=== PATIENT | female | born 1950 | race Caucasian/White ===

== ENCOUNTER 2017-10-03 09:47 | Observation (INO) ==
[2017-10-03] MEDS ORDERED: Ipratropium/Albuterol Neb 3 ML IH ONE (09:55)
--- NOTE | 2017-10-03 09:57 | Emergency Department Note ---
Disposition Clinical Impression: Influenza, Hypoxia, Weakness generalized Disposition: Admitted As Inpatient Condition: Fair Referrals: Jazmin Blair CNP [Primary Care Provider] - Forms: ED Satisfaction Letter SOB HPI - General Chief Complaint: ED Shortness of Breath/Dyspnea Stated Complaint: fever,chills, sob Time Seen by Provider: 10/03/17 09:50 Source: patient Mode of arrival: private vehicle Limitations: no limitations Nursing Notes Reviewed: Yes Vital Signs Reviewed: Yes - History of Present Illness Patient presents stating that she has "awful sick". She states symptoms started sometime last week and she cannot identify exactly how long. She states she did go to her family doctor on Saturday and received a intramuscular injection of an antibiotic and was discharged on an antibiotic. She is told she had an ear infection had a negative flu swab. She denies any other tests. She is continued with a cough which is nonproductive. She reports fevers, chills and generalized weakness and malaise. Denies chest pain and states it is "just short of breath". She has had some nausea without vomiting and has had some diarrhea for about 2 weeks. She is unable to describe her diarrhea at this time because she is "too sick". She has had a bit of a sore throat. She has been exposed to a daughter who has had recent upper respiratory infection. She states she has had surgery on her left leg but denies any new lower extremity swelling or pain or injury. She has not been having trouble with her urine. She denies headache, visual changes or any localized weakness. She has generalized weakness and malaise. Pt Subjective Complaint: shortness of breath, cough Onset (ago): week(s) (1) Context: recent illness Severity: moderate Consistency/Duration: gradually worsening Improves with: rest Worsens with: exertion, coughing Known history of: asthma Associated symptoms: Reports: fever, cough, wheezing, nausea/vomiting. Denies: chest pain, pain with inspiration, sputum production, orthopnea, lower extremity pain, polyuria, polydipsia, parasthesias, palpitations, hemoptysis, diaphoresis, syncope, abdominal pain, rash Cough present: Yes Cough Description: Voluntary, Dry, Hacking Cough Frequency: Intermittent Sputum production: No - Related Data Home oxygen amount: none Home Medications Medication Instructions Recorded Confirmed ALPRAZolam [Xanax 0.5 MG Tablet] 0.5 mg PO QID 06/13/17 10/03/17 Albuterol Sulfate [Albuterol 2 puff IH Q4H PRN 06/13/17 10/03/17 Inhaler] Aspirin [Lo-Dose Aspirin EC] 81 mg PO DAILY 06/13/17 10/03/17 Cetirizine HCl [Zyrtec] 10 mg PO DAILY 06/13/17 10/03/17 Cholecalciferol (D-3) [Vitamin D] 5,000 unit PO DAILY 06/13/17 10/03/17 Citalopram Hydrobromide [Celexa] 30 mg PO DAILY 06/13/17 10/03/17 Cyclobenzaprine [Flexeril] 5 mg PO HS 06/13/17 10/03/17 Fluticasone Propionate Nasal 1 spray NS BID 06/13/17 10/03/17 [Flonase] Lisinopril [Zestril] 10 mg PO DAILY 06/13/17 10/03/17 Montelukast Sodium [Singulair] 10 mg PO HS 06/13/17 10/03/17 OxyCODONE/APAP 10/325 [Percocet 1 each PO Q4H PRN 06/13/17 10/03/17 10/325 MG] lamoTRIgine [Lamictal] 200 mg PO HS 06/13/17 10/03/17 risperiDONE [RisperDAL] 4 mg PO DAILY 06/13/17 10/03/17 Amoxicillin 875 mg PO BID 10/03/17 10/03/17 Allergies Allergy/AdvReac Type Severity Reaction Status Date / Time prochlorperazine Allergy Rash Verified 10/03/17 09:49 All systems ED: reviewed and negative except as stated. Past Medical History - Past Medical History Attestation: Yes The following information was validated with the patient. Source: patient, old records reviewed, obtained from family, nursing notes reviewed Medical history: Reports: asthma, hypertension, osteoporosis, other Surgical history: Reports: appendectomy, cataract, cholecystectomy, hysterectomy , knee replacement (left), other Psychiatric history: Reports: anxiety, bipolar, depression - Social History Smoking Status: Never smoker Smokeless Tobacco Status: No Alcohol use: Reports: none Drug use: Reports: none Physical Exam - General Limitations: no limitations General appearance: alert, anxious - Head Head exam: atraumatic, normocephalic, normal inspection - Eye Eye exam: Present: normal appearance, PERRL, EOMI - ENT ENT exam: normal exam, normal oropharynx, mucous membranes moist, other (Left TM is erythematous. Right TM is normal.) - Neck Neck exam: Present: normal inspection, full ROM, trachea midline - Chest Chest inspection: Present: normal inspection, symmetric chest wall rise - Respiratory Respiratory exam: Present: normal lung sounds bilaterally, respiratory distress (Tachypneic), wheezes. Absent: accessory muscle use, prolonged expiratory phase - Cardiovascular Cardiovascular exam: Present: regular rate, normal rhythm, normal heart sounds - Abdominal Exam Abdominal exam: Present: soft, Non-Tender, normal bowel sounds. Absent: tenderness, distention, guarding, rebound, rigidity - Extremities Exam Extremities exam: Present: normal inspection, full ROM. Absent: tenderness, pedal edema - Expanded Lower Extremity Exam Neurovascular/Tendon exam: Present: normal capillary refill. Absent: motor deficit, sensory deficit, tendon deficit Gait: observed and normal (With a walker) - Back Exam Back exam: Present: normal inspection, full ROM. Absent: tenderness - Neurological Exam Neurological exam: Present: alert, oriented X3 - Psychiatric Psychiatric exam: Present: agitated, anxious - Skin Skin exam: Present: warm, dry, intact, normal color. Absent: rash, diaphoresis , pallor Course Course Narrative: Care has been discussed with the patient and Dr. Moya. Given her room air hypoxia 88%, dyspnea and malaise, she will need observation. She has been coordinated for observation with verbal orders obtained. Her condition is improved. Vital Signs Temperature 97.5 F L 10/03/17 09:50 Pulse Rate 81 10/03/17 09:50 Respiratory Rate 18 10/03/17 09:50 Blood Pressure 119/77 10/03/17 09:50 O2 Sat by Pulse Oximetry 88 10/03/17 09:50 Temperature 97.5 F L 10/03/17 09:50 Pulse Rate 75 10/03/17 11:00 Respiratory Rate 18 10/03/17 11:00 Blood Pressure 110/49 10/03/17 11:00 O2 Sat by Pulse Oximetry 95 10/03/17 11:00 Oxygen Delivery Oxygen Delivery Nasal Cannula Shortness of Breath/Dyspnea - Differential Diagnosis Likely: acute exacerbation of chronic obstructive airways disease, pneumonia, asthma with exacerbation - Medical Records Medical records reviewed: Yes I reviewed the patient's medical records. - Lab Data Lab results reviewed: Yes I reviewed the patient's lab results. Lab results narrative: Influenza A is positive and influenza B is negative. Result diagrams: 10/03/17 10:12 10/03/17 10:12 Lab Results 10/03/17 10/03/17 10/03/17 Range/Units 10:12 10:12 10:12 WBC 7.5 (4.3-11.1) K/mcL RBC 3.97 (3.82-4.97) M/mcL Hgb 11.6 (11.5-15.4) g/dL Hct 36.6 (35.3-44.9) % MCV 92.2 (83.0-100.0) fL MCH 29.2 (28.0-33.3) pg MCHC 31.7 (31.6-35.5) g/dL RDW 13.0 (11.5-14.5) % Plt Count 185 (140-400) K/mcL MPV 9.5 (9.4-12.4) fL Immature Gran % 0.3 (0-4) % Seg Neutrophils % 61.3 % Lymphocytes % 25.2 % Monocytes % 12.2 % Eosinophils % 0.9 % Basophils % 0.1 % Neutrophils # 4.6 (1.6-8.9) K/mcL Lymphocytes # 1.9 (0.6-4.6) K/mcL Monocytes # 0.9 (0.0-1.3) K/mcL Eosinophils # 0.1 (0.0-0.6) K/mcL Basophils # 0.0 (0.0-0.2) K/mcL Sodium 135 L (136-145) mEq/L Potassium 4.2 (3.5-5.1) mEq/L Chloride 97 L (98-107) mEq/L Carbon Dioxide 33 H (23-29) mEq/L BUN 9 (8-23) mg/dL Creatinine 0.74 (0.60-1.20) mg/dL Est GFR ( Amer) > 60 (> 60) Est GFR (Non-Af Amer) > 60 (> 60) BUN/Creatinine Ratio 12 (6-26) Glucose 103 (70-105) mg/dL Calculated Osmolality 279 L (280-300) Lactic Acid 1.0 (0.5-2.2) mmol/L Calcium 8.8 (8.6-10.3) mg/dL Troponin I (< 0.04) ng/mL B-Natriuretic Peptide (Less than 100) pg/mL 10/03/17 10/03/17 Range/Units 10:12 10:12 WBC (4.3-11.1) K/mcL RBC (3.82-4.97) M/mcL Hgb (11.5-15.4) g/dL Hct (35.3-44.9) % MCV (83.0-100.0) fL MCH (28.0-33.3) pg MCHC (31.6-35.5) g/dL RDW (11.5-14.5) % Plt Count (140-400) K/mcL MPV (9.4-12.4) fL Immature Gran % (0-4) % Seg Neutrophils % % Lymphocytes % % Monocytes % % Eosinophils % % Basophils % % Neutrophils # (1.6-8.9) K/mcL Lymphocytes # (0.6-4.6) K/mcL Monocytes # (0.0-1.3) K/mcL Eosinophils # (0.0-0.6) K/mcL Basophils # (0.0-0.2) K/mcL Sodium (136-145) mEq/L Potassium (3.5-5.1) mEq/L Chloride (98-107) mEq/L Carbon Dioxide (23-29) mEq/L BUN (8-23) mg/dL Creatinine (0.60-1.20) mg/dL Est GFR ( Amer) (> 60) Est GFR (Non-Af Amer) (> 60) BUN/Creatinine Ratio (6-26) Glucose (70-105) mg/dL Calculated Osmolality (280-300) Lactic Acid (0.5-2.2) mmol/L Calcium (8.6-10.3) mg/dL Troponin I < 0.03 (< 0.04) ng/mL B-Natriuretic Peptide 5 (Less than 100) pg/mL - Radiology Data Radiology results reviewed: Yes I reviewed the patient's radiology results. Single view chest x-ray is performed. This does not demonstrate evidence for infiltrate, effusion, pneumothorax, foreign body or heart failure. The cardiac silhouette is normal. I do not see abnormality to the osseous structures of the chest. This is on my interpretation. Impressions Chest X-Ray 10/03/17 09:55 IMPRESSION: Mild cardiomegaly. Otherwise, no acute abnormalities seen in the chest D/ / Ang Anders MD / Ang Anders MD Interpreting Provider: Ang Anedrs MD - EKG Data EKG attestation: Yes I reviewed and interpreted this EKG. EKG shows normal: Reports: sinus rhythm, axis, intervals, ST-T waves Rate: Reports: normal (75) [place]/QRS: Reports: RBBB Interpretation: Reports: no acute changes
[2017-10-03 10:28] LABS: Basophils % 0.1 %; Eosinophils # 0.1 K/mcL (0.0-0.6); Eosinophils % 0.9 %; Hematocrit 36.6 % (35.3-44.9); Hemoglobin 11.6 g/dL (11.5-15.4); Immature Granulocytes % 0.3 % (0-4); Lymphocytes # 1.9 K/mcL (0.6-4.6); Lymphocytes % 25.2 %; Mean Corpuscular HGB Conc 31.7 g/dL (31.6-35.5); Mean Corpuscular Hemoglobin 29.2 pg (28.0-33.3); Mean Corpuscular Volume 92.2 fL (83.0-100.0); Mean Platelet Volume 9.5 fL (9.4-12.4); Monocytes # 0.9 K/mcL (0.0-1.3); Monocytes % 12.2 %; Neutrophils # 4.6 K/mcL (1.6-8.9); Platelet Count 185 K/mcL (140-400); Red Blood Count 3.97 M/mcL (3.82-4.97); Segmented Neutrophils % 61.3 %
[2017-10-03 10:39] LABS: BUN/Creatinine Ratio 12 (6-26); Blood Urea Nitrogen 9 mg/dL (8-23); Calcium 8.8 mg/dL (8.6-10.3); Carbon Dioxide 33 mEq/L (23-29); Chloride 97 mEq/L (98-107); Glucose 103 mg/dL (70-105); Osmolality,Calculated 279 (280-300); Potassium 4.2 mEq/L (3.5-5.1); Sodium 135 mEq/L (136-145); eGFR For African Americans > 60 (> 60); eGFR For Non-African Americans > 60 (> 60)
[2017-10-03] MEDS ORDERED: 0.9 % Sodium Chloride 1,000 ML IVC SCH (11:15)
[2017-10-03] MEDS ORDERED: Naloxone 0.4 MG/ML INJ IVP PRN (12:01)
[2017-10-03] MEDS ORDERED: MOM Conc 10 ML UD.LIQ PO PRN (12:01)
[2017-10-03] MEDS ORDERED: Ondansetron 4 MG/2 ML VIAL IVP PRN (12:01)
[2017-10-03] MEDS: 0.9 % Sodium Chloride 1,000 ML IVC SCH ×2 (12:43→20:14)
[2017-10-03] MEDS: ALPRAZolam 0.5 MG TABLET PO SCH ×3 (12:43→20:12)
[2017-10-03] MEDS: *HR* OxyCODONE/APAP 10/325 TABLET PO PRN ×2 (13:23→20:12)
--- NOTE | 2017-10-03 15:08 | Internal Med History&Physical ---
Date of Encounter: 10/03/17 Time of Encounter: 14:35 Assessment and Plan (1) Influenza Current visit: Yes Status: Acute She has been started on Tamiflu. Room air oximetry will be checked in a.m. Internal Medicine - H&P: HPI Chief complaint: Dyspnea and diarrhea Admitted From: Emergency Dept Plans for Post Hospital Care: Home History of present illness: Ms. Brenner is a 67 year old female who came to emergency room stating she had dyspnea with diarrhea onset approximately 2 weeks ago. She had seen her PCP on September 27 and received a prescription for Augmentin. She had taken the medication as prescribed but did not feel improved. She reports diarrhea is present intermittently for approximately 2 weeks without visible blood. She was evaluated in emergency room found to have influenza A and borderline hypoxemia. She was admitted to [facility] floor for ongoing care needs She reports several family members have had similar respiratory illnesses. Denies abdominal pain but states she does have some soreness in her chest on deep inspiration. Her respiratory history is significant for having smoked from age [age] up to 3 packs per day. She has a diagnosis of asthma. She does not wear home oxygen and has not been tested for sleep apnea. Past Med Surg Social Fam HX - Past Medical History Medical history: asthma, hypertension, osteoporosis, other Psychiatric history: anxiety, bipolar, depression - Past Surgical History Surgical History: appendectomy, cataract, cholecystectomy, hysterectomy, knee replacement, other - Social History Smoking Status: Never smoker Smokeless Tobacco Status: No Alcohol use: none Drug use: none - Family History Father Adopted: No Family Member Ethnicity: Non- Living Status: Hx Family Cardiac Disorders: No Hx Family Respiratory Disorders: No Hx Family Cancer: No Hx Family GI Disorders: No Hx Family Endocrine Disorder: No Hx Family Neuromuscular Disorders: No Hx Family Neurologic Disorders: No Hx Family HEENT Disorders: No Hx Family Autoimmune Disorders: No Internal Medicine - H&P: Meds ALPRAZolam [Xanax 0.5 MG Tablet] 0.5 mg PO QID 06/13/17 [History] Albuterol Sulfate [Albuterol Inhaler] 2 puff IH Q4H PRN 06/13/17 [History] Aspirin [Lo-Dose Aspirin EC] 81 mg PO DAILY 06/13/17 [History] Cetirizine HCl [Zyrtec] 10 mg PO DAILY 06/13/17 [History] Cholecalciferol (D-3) [Vitamin D] 5,000 unit PO DAILY 06/13/17 [History] Citalopram Hydrobromide [Celexa] 30 mg PO DAILY 06/13/17 [History] Cyclobenzaprine [Flexeril] 5 mg PO HS 06/13/17 [History] Fluticasone Propionate Nasal [Flonase] 1 spray NS BID 06/13/17 [History] Lisinopril [Zestril] 10 mg PO DAILY 06/13/17 [History] Montelukast Sodium [Singulair] 10 mg PO HS 06/13/17 [History] OxyCODONE/APAP 10/325 [Percocet 10/325 MG] 1 each PO Q4H PRN 06/13/17 [History] lamoTRIgine [Lamictal] 200 mg PO HS 06/13/17 [History] risperiDONE [RisperDAL] 4 mg PO DAILY 06/13/17 [History] Amoxicillin 875 mg PO BID 10/03/17 [History] 3 Allergy/AdvReac Type Severity Reaction Status Date / Time prochlorperazine Allergy Rash Verified 10/03/17 09:49 All Systems PM: A 10-system review of systems was performed and is negative for pertinent findings except as documented above in the HPI. Review of systems: Gen.: Her weight has increased from 81.647 kg at a July 2014 [facility] hospitalization to 108.862 kg on admission now Cardiovascular: She has history of hypertension but denies NV heart failure angina DVT or pulmonary embolus Respiratory: As per history of present illness GI: She has had cholecystectomy. She has occasional GERD. She denies disorders of her liver or exocrine pancreas : No history of hematuria or dysuria or kidney stones Neurologic: She has occasional migraine headaches but denies large distribution strokes or seizures. Endocrine: She denies diabetes thyroid disease or hyperlipidemia Hematology/oncology: She has had anemia in the past. 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 She denies other internal malignancies. Psychiatric: She has anxiety, bipolar disorder and schizoaffective disorder. She follows at mental health clinic. Muscle skeletal: She has had 3 left knee replacements and a left leg fracture. She denies gout or osteoporosis. - Constitutional Vitals: Temp Pulse Resp BP Pulse Ox 97.8 F 71 20 98/61 96 10/03/17 12:05 10/03/17 12:05 10/03/17 12:05 10/03/17 12:05 10/03/17 12:05 Exam: Gen.: She is a well-developed overweight female lying in bed who appears in minimal respiratory distress at present time HEENT: Head is atraumatic and normocephalic. Eyes: EOMI. There is no scleral icterus. Mouth: Mucosa is moist. Neck: Supple and nontender. There is no thyromegaly or adenopathy noted. Heart: Regular without murmurs gallops or ectopics Lungs: No wheezes or crackles are heard. Abdomen: She has a large abdomen. It is nontender to palpation. Chest: She has mild tenderness in her costosternal joints to palpation Extremities: She has a well-healed scar over her left knee extending into her left lower leg area. There is trace edema bilaterally of the dorsum of the feet. Dorsalis pedis and posterior tibial pulses are trace palpable bilaterally. Neurologic: Mental status: She is talkative and a good historian. Cranial nerves: Smile is symmetric. Forehead wrinkles bilaterally. Tongue protrudes midline. EOMI. Motor: There is no pronator drift. Cerebellar: Finger to nose is intact bilaterally. Skin: Warm and dry Internal Med - H&P Results - Labs CBC & Chem 7: 10/03/17 10:12 10/03/17 10:12
[2017-10-03] MEDS ORDERED: Ipratropium/Albuterol Neb 3 ML IH SCH (16:00)
[2017-10-03] MEDS: Albuterol 2.5 MG/3 ML NEBULIZER IH PRN ×2 (16:22→23:14)
--- NOTE | 2017-10-03 18:35 | Electrocardiograph Report ---
[address] [address] Test Date: 2017-10-03 Pat Name: Sabine Brenner Department: 9201 Room: [facility] Gender: F Cell Coverer: [id number] : 1950 Requested By: Esvin Garcia Order Number: [id number] Reading MD: Cyrus Decker MD Measurements Intervals [place] Rate: 75 P: 56 MD: 158 QRS: 3 QRSD: 105 T: 26 QT: 361 QTc: 389 Interpretive Statements SINUS RHYTHM INCOMPLETE RIGHT BUNDLE BRANCH BLOCK Poor R wave progression Electronically Signed On 10-03-2017 18:34:10 EST by Cyrus Decker MD
[2017-10-03] MEDS ORDERED: lamoTRIgine 100 MG TABLET PO SCH (21:00)
[2017-10-04] MEDS: *HR* OxyCODONE/APAP 10/325 TABLET PO PRN ×2 (02:10→06:46)
[2017-10-04] MEDS ORDERED: Acetaminophen 325 MG TABLET PO PRN (03:38)
[2017-10-04 06:44] VITALS: BP 125/74
[2017-10-04] MEDS: 0.9 % Sodium Chloride 1,000 ML IVC SCH (06:46)
[2017-10-04] MEDS: Albuterol 2.5 MG/3 ML NEBULIZER IH PRN (08:19)
[2017-10-04] MEDS ORDERED: risperiDONE 1 MG TABLET PO SCH (09:00)
[2017-10-04] MEDS ORDERED: Loratadine 10 MG TABLET PO SCH (09:00)
[2017-10-04] MEDS ORDERED: Aspirin Enteric Coated 81 MG Tablet PO SCH (09:00)
[2017-10-04] MEDS: ALPRAZolam 0.5 MG TABLET PO SCH (09:18)
--- NOTE | 2017-10-04 10:19 | Discharge Summary ---
Date of Encounter: 10/04/17 Time of Encounter: 10:10 - Discharge Diagnosis (1) Influenza Priority: Primary Status: Acute (2) COPD (chronic obstructive pulmonary disease) Priority: Secondary Status: Chronic Qualifiers: COPD type: unspecified COPD Qualified Code(s): J44.9 - Chronic obstructive pulmonary disease, unspecified - Discharge Medications Prescriptions: Oseltamivir [Tamiflu] 75 mg PO BID #8 capsule Home Medications: Albuterol Sulfate [Albuterol Inhaler] 2 puff IH Q4H PRN 06/13/17 [History] Aspirin [Lo-Dose Aspirin EC] 81 mg PO DAILY 06/13/17 [History] Cholecalciferol (D-3) [Vitamin D] 5,000 unit PO DAILY 06/13/17 [History] Citalopram Hydrobromide [Celexa] 30 mg PO DAILY 06/13/17 [History] Cyclobenzaprine [Flexeril] 5 mg PO HS 06/13/17 [History] Fluticasone Propionate Nasal [Flonase] 1 spray NS BID 06/13/17 [History] Lisinopril [Zestril] 10 mg PO DAILY 06/13/17 [History] Montelukast Sodium [Singulair] 10 mg PO HS 06/13/17 [History] OxyCODONE/APAP 10/325 [Percocet 10/325 MG] 1 each PO Q4H PRN 06/13/17 [History] lamoTRIgine [Lamictal] 200 mg PO HS 06/13/17 [History] risperiDONE [RisperDAL] 4 mg PO DAILY 06/13/17 [History] ALPRAZolam [Xanax 0.5 MG Tablet] 0.5 mg PO TID #0 10/04/17 [Rx] Cetirizine HCl [Zyrtec] 10 mg PO DAILY PRN #0 10/04/17 [Rx] Oseltamivir [Tamiflu] 75 mg PO BID #8 capsule 10/04/17 [Rx] Allergies/Adverse Reactions: 3 Allergy/AdvReac Type Severity Reaction Status Date / Time prochlorperazine Allergy Rash Verified 10/03/17 09:49 Date of admission: 10/03/17 11:25 Primary care physician: Jazmin Blair CNP - Patient Status Disposition: Home, Self-Care Condition: Fair Overall status at discharge: patient is progressing back to baseline - Discharge Instructions Follow Up With: Jazmin Blair, RASHARD [Primary Care Provider] - 1 week - Diet and Activity Activity: resume usual activities as tolerated, wear oxygen at all times Diet: advance to your usual diet Hospital course: Ms. Brenner is a 67 year old female who came to emergency room stating she had dyspnea with diarrhea onset approximately 2 weeks ago. She had seen her PCP on September 27 and received a prescription for Augmentin. She had taken the medication as prescribed but did not feel improved. She reports diarrhea is present intermittently for approximately 2 weeks without visible blood. She was evaluated in emergency room found to have influenza A and borderline hypoxemia. She was admitted to [facility] floor for ongoing care needs. Initial orders were written by the emergency room physician. I saw her on October 03 and performed a history and physical. She was started on Tamiflu and Augmentin was discontinued. She spiked occasional low-grade fever. When I saw her on October 04 she appeared medically stable for discharge home. She will continue with Tamiflu for 4 additional days after discharge. Room air oximetry testing showed saturations decreasing to 86% while at rest. She became dyspneic and required immediate reinstitution of oxygen for safety and comfort. She will be discharged home with oxygen at 2 L/m by nasal cannula 01/04 with portable gas and concentrator. Discharge Diagnosis Is COPD with Hypoxemia. She Will Follow with her PCP Debora Blair within 1 Week. - Time Spent with Patient Total time spent providing and/or coordinating discharge services: - Constitutional Vitals: Temp Pulse Resp BP Pulse Ox 98.7 F 81 17 125/74 92 10/04/17 06:42 10/04/17 06:42 10/04/17 08:22 10/04/17 06:42 10/04/17 08:22
== END 2017-10-04 13:13 | disposition home or self-care (01) ==
LOC: INPPIK 09:47 → EMEROOPIK 09:47 → INPPIK 11:40
PROVIDERS: ADMIT Emergency Medicine; ATTEND Internal Medicine

== ENCOUNTER 2021-02-17 18:39 | Inpatient (IN) ==
[2021-02-17] MEDS ORDERED: Sennosides/Docusate Sodium TABLET PO PRN (19:44)
[2021-02-17] MEDS: Ondansetron ODT 4 MG TAB.RAPDIS SL PRN (21:13)
[2021-02-17] MEDS: Melatonin 3 MG TABLET PO PRN (21:13)
[2021-02-17] MEDS: ALPRAZolam 0.5 MG TABLET PO SCH (21:14)
[2021-02-17] MEDS: lamoTRIgine 100 MG TABLET PO SCH (21:14)
[2021-02-17] MEDS: *HR* OxyCODONE/APAP 10/325 TABLET PO PRN (21:14)
[2021-02-17] MEDS: Fluticasone Propionate Nasal 50 MCG/SPRAY BOTTLE NS SCH (21:15)
[2021-02-18] MEDS: *HR* OxyCODONE/APAP 10/325 TABLET PO PRN ×4 (04:18→22:52)
[2021-02-18] MEDS: *HR* Enoxaparin 40 MG/0.4 ML SYRINGE SQ SCH (05:20)
[2021-02-18 07:31] LABS: Basophils % 0.3 %; Eosinophils # 0.2 K/mcL (0.0-0.6); Eosinophils % 2.6 %; Hematocrit 26.8 % (35.3-44.9); Hemoglobin 7.9 g/dL (11.5-15.4); Immature Granulocytes % 0.3 % (0-4); Lymphocytes # 1.5 K/mcL (0.6-4.6); Lymphocytes % 23.9 %; Mean Corpuscular HGB Conc 29.5 g/dL (31.6-35.5); Mean Corpuscular Hemoglobin 28.2 pg (28.0-33.3); Mean Corpuscular Volume 95.7 fL (83.0-100.0); Mean Platelet Volume 9.5 fL (9.4-12.4); Monocytes # 0.7 K/mcL (0.0-1.3); Monocytes % 11.8 %; Neutrophils # 3.7 K/mcL (1.6-8.9); Platelet Count 287 K/mcL (140-400); Red Cell Distribution Width 13.6 % (11.5-14.5); Segmented Neutrophils % 61.1 %; White Blood Count 6.1 K/mcL (4.3-11.1)
[2021-02-18 07:46] LABS: Potassium 3.4 mEq/L (3.5-5.1)
[2021-02-18] MEDS ORDERED: NIFEdipine XL (24 HR) 60 MG TAB.ER.24 PO SCH (09:00)
[2021-02-18] MEDS: Fluticasone Propionate Nasal 50 MCG/SPRAY BOTTLE NS SCH ×2 (09:20→19:50)
[2021-02-18] MEDS: lamoTRIgine 100 MG TABLET PO SCH ×2 (09:20→19:49)
[2021-02-18] MEDS: polyethylene glycoL 3350 17 GM POWD.PACK PO SCH (09:20)
[2021-02-18] MEDS: Cyanocobalamin (B-12) 1,000 MCG TABLET PO SCH (09:21)
[2021-02-18] MEDS: CARIPRAZINE 3 MG PO SCH (09:21)
[2021-02-18] MEDS: ALPRAZolam 0.5 MG TABLET PO SCH ×2 (09:21→19:49)
[2021-02-18] MEDS: Aspirin Enteric Coated 81 MG Tablet PO SCH (09:21)
[2021-02-18] MEDS: Renal Vitamin 1 CAP CAPSULE PO SCH (09:21)
[2021-02-18] MEDS: NIFEdipine XL (24 HR) 30 MG TAB.ER.24 PO SCH (09:30)
[2021-02-18] MEDS: Ondansetron ODT 4 MG TAB.RAPDIS SL PRN (14:07)
[2021-02-18] MEDS: Sennosides/Docusate Sodium TABLET PO SCH (19:49)
[2021-02-18] MEDS: Acetaminophen 325 MG TABLET PO PRN (20:42)
[2021-02-18] MEDS: Melatonin 3 MG TABLET PO PRN (20:43)
[2021-02-19] MEDS: *HR* OxyCODONE/APAP 10/325 TABLET PO PRN ×3 (04:53→19:52)
[2021-02-19] MEDS: polyethylene glycoL 3350 17 GM POWD.PACK PO SCH (08:24)
[2021-02-19] MEDS: ALPRAZolam 0.5 MG TABLET PO SCH ×2 (08:26→19:52)
[2021-02-19] MEDS: Sennosides/Docusate Sodium TABLET PO SCH ×2 (08:26→19:52)
[2021-02-19] MEDS: Renal Vitamin 1 CAP CAPSULE PO SCH (08:26)
[2021-02-19] MEDS: Aspirin Enteric Coated 81 MG Tablet PO SCH (08:29)
[2021-02-19] MEDS: lamoTRIgine 100 MG TABLET PO SCH ×2 (08:29→19:53)
[2021-02-19] MEDS: Cyanocobalamin (B-12) 1,000 MCG TABLET PO SCH (08:29)
[2021-02-19] MEDS: Acetaminophen 325 MG TABLET PO PRN ×2 (08:29→16:39)
[2021-02-19] MEDS: NIFEdipine XL (24 HR) 30 MG TAB.ER.24 PO SCH (08:29)
[2021-02-19] MEDS: Fluticasone Propionate Nasal 50 MCG/SPRAY BOTTLE NS SCH ×2 (08:34→19:54)
[2021-02-19] MEDS: Ondansetron ODT 4 MG TAB.RAPDIS SL PRN (12:41)
[2021-02-19] MEDS: CARIPRAZINE 3 MG PO SCH (16:28)
[2021-02-19] MEDS: *HR* Enoxaparin 40 MG/0.4 ML SYRINGE SQ SCH (19:05)
[2021-02-19] MEDS: Melatonin 3 MG TABLET PO PRN (19:53)
[2021-02-20] MEDS: *HR* OxyCODONE/APAP 10/325 TABLET PO PRN ×4 (01:49→23:01)
[2021-02-20] MEDS: *HR* Enoxaparin 40 MG/0.4 ML SYRINGE SQ SCH (05:32)
[2021-02-20] MEDS: Fluticasone Propionate Nasal 50 MCG/SPRAY BOTTLE NS SCH ×2 (07:20→20:34)
[2021-02-20] MEDS: Sennosides/Docusate Sodium TABLET PO SCH ×2 (07:21→20:31)
[2021-02-20] MEDS: Aspirin Enteric Coated 81 MG Tablet PO SCH (07:21)
[2021-02-20] MEDS: Renal Vitamin 1 CAP CAPSULE PO SCH (07:21)
[2021-02-20] MEDS: NIFEdipine XL (24 HR) 30 MG TAB.ER.24 PO SCH (07:21)
[2021-02-20] MEDS: polyethylene glycoL 3350 17 GM POWD.PACK PO SCH (07:21)
[2021-02-20] MEDS: Cyanocobalamin (B-12) 1,000 MCG TABLET PO SCH (07:22)
[2021-02-20] MEDS: ALPRAZolam 0.5 MG TABLET PO SCH ×2 (07:22→20:33)
[2021-02-20] MEDS: lamoTRIgine 100 MG TABLET PO SCH ×2 (07:22→20:34)
[2021-02-20] MEDS: CARIPRAZINE 3 MG PO SCH (07:22)
[2021-02-20] MEDS: Acetaminophen 325 MG TABLET PO PRN (20:31)
[2021-02-20] MEDS: Melatonin 3 MG TABLET PO PRN (20:32)
[2021-02-20] MEDS: Ondansetron ODT 4 MG TAB.RAPDIS SL PRN (21:06)
[2021-02-21] MEDS: *HR* OxyCODONE/APAP 10/325 TABLET PO PRN ×3 (05:48→18:56)
[2021-02-21] MEDS: *HR* Enoxaparin 40 MG/0.4 ML SYRINGE SQ SCH (05:48)
[2021-02-21] MEDS: Sennosides/Docusate Sodium TABLET PO SCH ×2 (08:46→20:09)
[2021-02-21] MEDS: polyethylene glycoL 3350 17 GM POWD.PACK PO SCH ×2 (08:46→09:00)
[2021-02-21] MEDS: Cyanocobalamin (B-12) 1,000 MCG TABLET PO SCH (08:47)
[2021-02-21] MEDS: Aspirin Enteric Coated 81 MG Tablet PO SCH (08:47)
[2021-02-21] MEDS: Renal Vitamin 1 CAP CAPSULE PO SCH (08:47)
[2021-02-21] MEDS: ALPRAZolam 0.5 MG TABLET PO SCH ×2 (08:47→20:09)
[2021-02-21] MEDS: NIFEdipine XL (24 HR) 30 MG TAB.ER.24 PO SCH (08:47)
[2021-02-21] MEDS: Fluticasone Propionate Nasal 50 MCG/SPRAY BOTTLE NS SCH ×2 (08:48→20:20)
[2021-02-21] MEDS: lamoTRIgine 100 MG TABLET PO SCH ×2 (08:49→20:09)
[2021-02-21] MEDS: CARIPRAZINE 3 MG PO SCH (08:49)
[2021-02-21] MEDS: Acetaminophen 325 MG TABLET PO PRN ×2 (10:41→16:22)
[2021-02-21] MEDS: Melatonin 3 MG TABLET PO PRN (20:09)
[2021-02-22] MEDS: *HR* OxyCODONE/APAP 10/325 TABLET PO PRN ×3 (02:53→17:07)
[2021-02-22] MEDS: Acetaminophen 325 MG TABLET PO PRN ×2 (05:19→11:40)
[2021-02-22] MEDS: *HR* Enoxaparin 30 MG/0.3 ML SYRINGE SQ SCH (05:19)
[2021-02-22] MEDS: ALPRAZolam 0.5 MG TABLET PO SCH ×2 (08:22→20:02)
[2021-02-22] MEDS: NIFEdipine XL (24 HR) 30 MG TAB.ER.24 PO SCH (08:22)
[2021-02-22] MEDS: Sennosides/Docusate Sodium TABLET PO SCH ×2 (08:22→20:03)
[2021-02-22] MEDS: Aspirin Enteric Coated 81 MG Tablet PO SCH (08:22)
[2021-02-22] MEDS: lamoTRIgine 100 MG TABLET PO SCH ×2 (08:22→20:03)
[2021-02-22] MEDS: Renal Vitamin 1 CAP CAPSULE PO SCH (08:23)
[2021-02-22] MEDS: Cyanocobalamin (B-12) 1,000 MCG TABLET PO SCH (08:23)
[2021-02-22] MEDS: polyethylene glycoL 3350 17 GM POWD.PACK PO SCH (08:24)
[2021-02-22] MEDS: CARIPRAZINE 3 MG PO SCH (08:24)
[2021-02-22] MEDS: Fluticasone Propionate Nasal 50 MCG/SPRAY BOTTLE NS SCH ×2 (08:24→20:06)
[2021-02-22] MEDS: Melatonin 3 MG TABLET PO PRN (20:03)
[2021-02-22] MEDS: Ondansetron ODT 4 MG TAB.RAPDIS SL PRN (21:14)
[2021-02-23] MEDS: *HR* OxyCODONE/APAP 10/325 TABLET PO PRN ×4 (01:41→21:05)
[2021-02-23] MEDS: *HR* Enoxaparin 30 MG/0.3 ML SYRINGE SQ SCH (05:24)
[2021-02-23] MEDS: Sennosides/Docusate Sodium TABLET PO SCH ×2 (08:21→20:20)
[2021-02-23] MEDS: ALPRAZolam 0.5 MG TABLET PO SCH ×2 (08:22→20:20)
[2021-02-23] MEDS: Cyanocobalamin (B-12) 1,000 MCG TABLET PO SCH (08:22)
[2021-02-23] MEDS: Aspirin Enteric Coated 81 MG Tablet PO SCH (08:22)
[2021-02-23] MEDS: NIFEdipine XL (24 HR) 30 MG TAB.ER.24 PO SCH (08:22)
[2021-02-23] MEDS: Renal Vitamin 1 CAP CAPSULE PO SCH (08:22)
[2021-02-23] MEDS: CARIPRAZINE 3 MG PO SCH (08:23)
[2021-02-23] MEDS: lamoTRIgine 100 MG TABLET PO SCH ×2 (08:23→20:20)
[2021-02-23] MEDS: Fluticasone Propionate Nasal 50 MCG/SPRAY BOTTLE NS SCH ×3 (08:23→21:20)
[2021-02-23] MEDS: polyethylene glycoL 3350 17 GM POWD.PACK PO SCH (08:23)
[2021-02-23] MEDS: Acetaminophen 325 MG TABLET PO PRN ×2 (11:57→17:57)
[2021-02-23] MEDS: Ondansetron ODT 4 MG TAB.RAPDIS SL PRN (17:58)
[2021-02-23] MEDS: Melatonin 3 MG TABLET PO PRN (21:18)
[2021-02-24] MEDS: *HR* OxyCODONE/APAP 10/325 TABLET PO PRN ×4 (03:55→23:48)
[2021-02-24] MEDS: Ondansetron ODT 4 MG TAB.RAPDIS SL PRN ×3 (04:00→17:47)
[2021-02-24] MEDS: *HR* Enoxaparin 30 MG/0.3 ML SYRINGE SQ SCH (05:41)
[2021-02-24 05:56] LABS: Basophils % 0.3 %; Eosinophils # 0.2 K/mcL (0.0-0.6); Eosinophils % 3.4 %; Hemoglobin 8.7 g/dL (11.5-15.4); Immature Granulocytes % 0.3 % (0-4); Lymphocytes % 31.9 %; Mean Corpuscular Hemoglobin 28.4 pg (28.0-33.3); Mean Corpuscular Volume 94.8 fL (83.0-100.0); Mean Platelet Volume 9.2 fL (9.4-12.4); Monocytes # 0.7 K/mcL (0.0-1.3); Monocytes % 10.7 %; Neutrophils # 3.3 K/mcL (1.6-8.9); Platelet Count 288 K/mcL (140-400); Red Blood Count 3.06 M/mcL (3.82-4.97); Red Cell Distribution Width 14.2 % (11.5-14.5); Segmented Neutrophils % 53.4 %; White Blood Count 6.3 K/mcL (4.3-11.1)
[2021-02-24 06:19] LABS: Calcium 8.6 mg/dL (8.6-10.3); Potassium 3.4 mEq/L (3.5-5.1)
[2021-02-24] MEDS: CARIPRAZINE 3 MG PO SCH (10:01)
[2021-02-24] MEDS: polyethylene glycoL 3350 17 GM POWD.PACK PO SCH (10:01)
[2021-02-24] MEDS: Aspirin Enteric Coated 81 MG Tablet PO SCH (10:09)
[2021-02-24] MEDS: Renal Vitamin 1 CAP CAPSULE PO SCH (10:09)
[2021-02-24] MEDS: Cyanocobalamin (B-12) 1,000 MCG TABLET PO SCH (10:09)
[2021-02-24] MEDS: NIFEdipine XL (24 HR) 30 MG TAB.ER.24 PO SCH (10:12)
[2021-02-24] MEDS: lamoTRIgine 100 MG TABLET PO SCH ×2 (10:12→20:39)
[2021-02-24] MEDS: ALPRAZolam 0.5 MG TABLET PO SCH ×2 (10:12→20:40)
[2021-02-24] MEDS: Sennosides/Docusate Sodium TABLET PO SCH ×2 (10:13→20:39)
[2021-02-24] MEDS: Fluticasone Propionate Nasal 50 MCG/SPRAY BOTTLE NS SCH ×2 (10:13→20:40)
[2021-02-24] MEDS: Acetaminophen 325 MG TABLET PO PRN (18:34)
[2021-02-24] MEDS: Melatonin 3 MG TABLET PO PRN (20:39)
[2021-02-25] MEDS: *HR* Enoxaparin 30 MG/0.3 ML SYRINGE SQ SCH (06:08)
[2021-02-25] MEDS: *HR* OxyCODONE/APAP 10/325 TABLET PO PRN ×3 (06:08→18:45)
[2021-02-25] MEDS: Fluticasone Propionate Nasal 50 MCG/SPRAY BOTTLE NS SCH ×2 (08:23→20:21)
[2021-02-25] MEDS: Renal Vitamin 1 CAP CAPSULE PO SCH (08:24)
[2021-02-25] MEDS: Cyanocobalamin (B-12) 1,000 MCG TABLET PO SCH (08:24)
[2021-02-25] MEDS: ALPRAZolam 0.5 MG TABLET PO SCH ×2 (08:24→20:20)
[2021-02-25] MEDS: lamoTRIgine 100 MG TABLET PO SCH ×2 (08:24→20:20)
[2021-02-25] MEDS: NIFEdipine XL (24 HR) 30 MG TAB.ER.24 PO SCH (08:24)
[2021-02-25] MEDS: Sennosides/Docusate Sodium TABLET PO SCH ×2 (08:25→20:20)
[2021-02-25] MEDS: polyethylene glycoL 3350 17 GM POWD.PACK PO SCH (08:25)
[2021-02-25] MEDS: CARIPRAZINE 3 MG PO SCH (08:25)
[2021-02-25] MEDS: Aspirin Enteric Coated 81 MG Tablet PO SCH (08:25)
[2021-02-25] MEDS: Acetaminophen 325 MG TABLET PO PRN ×3 (08:32→20:20)
[2021-02-25] MEDS: Ondansetron ODT 4 MG TAB.RAPDIS SL PRN (20:20)
[2021-02-25] MEDS: Melatonin 3 MG TABLET PO PRN (20:20)
[2021-02-26] MEDS: *HR* OxyCODONE/APAP 10/325 TABLET PO PRN ×4 (00:59→20:48)
[2021-02-26] MEDS: Acetaminophen 325 MG TABLET PO PRN ×2 (03:30→10:51)
[2021-02-26] MEDS: *HR* Enoxaparin 40 MG/0.4 ML SYRINGE SQ SCH (05:36)
[2021-02-26] MEDS: Sennosides/Docusate Sodium TABLET PO SCH ×2 (08:13→20:15)
[2021-02-26] MEDS: Fluticasone Propionate Nasal 50 MCG/SPRAY BOTTLE NS SCH ×2 (08:13→20:15)
[2021-02-26] MEDS: NIFEdipine XL (24 HR) 30 MG TAB.ER.24 PO SCH (08:14)
[2021-02-26] MEDS: Aspirin Enteric Coated 81 MG Tablet PO SCH (08:14)
[2021-02-26] MEDS: ALPRAZolam 0.5 MG TABLET PO SCH ×2 (08:14→20:16)
[2021-02-26] MEDS: Cyanocobalamin (B-12) 1,000 MCG TABLET PO SCH (08:14)
[2021-02-26] MEDS: polyethylene glycoL 3350 17 GM POWD.PACK PO SCH (08:15)
[2021-02-26] MEDS: lamoTRIgine 100 MG TABLET PO SCH ×2 (08:15→20:16)
[2021-02-26] MEDS: Renal Vitamin 1 CAP CAPSULE PO SCH (08:15)
[2021-02-26] MEDS: CARIPRAZINE 3 MG PO SCH (08:15)
[2021-02-26] MEDS: Melatonin 3 MG TABLET PO PRN (20:16)
[2021-02-27] MEDS: Acetaminophen 325 MG TABLET PO PRN ×4 (00:45→19:31)
[2021-02-27] MEDS: *HR* OxyCODONE/APAP 10/325 TABLET PO PRN ×4 (03:10→23:08)
[2021-02-27] MEDS: *HR* Enoxaparin 40 MG/0.4 ML SYRINGE SQ SCH (05:16)
[2021-02-27] MEDS: Sennosides/Docusate Sodium TABLET PO SCH ×2 (08:25→19:30)
[2021-02-27] MEDS: Aspirin Enteric Coated 81 MG Tablet PO SCH (08:25)
[2021-02-27] MEDS: NIFEdipine XL (24 HR) 30 MG TAB.ER.24 PO SCH (08:25)
[2021-02-27] MEDS: Renal Vitamin 1 CAP CAPSULE PO SCH (08:25)
[2021-02-27] MEDS: lamoTRIgine 100 MG TABLET PO SCH ×2 (08:26→19:30)
[2021-02-27] MEDS: ALPRAZolam 0.5 MG TABLET PO SCH ×2 (08:26→17:08)
[2021-02-27] MEDS: Cyanocobalamin (B-12) 1,000 MCG TABLET PO SCH (08:26)
[2021-02-27] MEDS: polyethylene glycoL 3350 17 GM POWD.PACK PO SCH (08:31)
[2021-02-27] MEDS: CARIPRAZINE 3 MG PO SCH (08:33)
[2021-02-27] MEDS: Fluticasone Propionate Nasal 50 MCG/SPRAY BOTTLE NS SCH ×2 (08:33→19:30)
[2021-02-27] MEDS: Melatonin 3 MG TABLET PO PRN (19:30)
[2021-02-28] MEDS: Ondansetron ODT 4 MG TAB.RAPDIS SL PRN ×2 (01:17→13:28)
[2021-02-28] MEDS: Acetaminophen 325 MG TABLET PO PRN ×3 (03:55→15:39)
[2021-02-28] MEDS: *HR* OxyCODONE/APAP 10/325 TABLET PO PRN ×3 (05:53→18:54)
[2021-02-28] MEDS: *HR* Enoxaparin 40 MG/0.4 ML SYRINGE SQ SCH (05:54)
[2021-02-28] MEDS: ALPRAZolam 0.5 MG TABLET PO SCH ×2 (09:41→20:58)
[2021-02-28] MEDS: Cyanocobalamin (B-12) 1,000 MCG TABLET PO SCH (09:41)
[2021-02-28] MEDS: Renal Vitamin 1 CAP CAPSULE PO SCH (09:42)
[2021-02-28] MEDS: lamoTRIgine 100 MG TABLET PO SCH ×2 (09:42→20:59)
[2021-02-28] MEDS: NIFEdipine XL (24 HR) 30 MG TAB.ER.24 PO SCH (09:42)
[2021-02-28] MEDS: Aspirin Enteric Coated 81 MG Tablet PO SCH (09:42)
[2021-02-28] MEDS: Sennosides/Docusate Sodium TABLET PO SCH ×2 (09:43→20:59)
[2021-02-28] MEDS: Fluticasone Propionate Nasal 50 MCG/SPRAY BOTTLE NS SCH ×2 (09:43→20:59)
[2021-02-28] MEDS: polyethylene glycoL 3350 17 GM POWD.PACK PO SCH (09:43)
[2021-02-28] MEDS: CARIPRAZINE 3 MG PO SCH ×2 (09:44→17:06)
[2021-02-28] MEDS: Melatonin 3 MG TABLET PO PRN (20:57)
[2021-03-01] MEDS: *HR* OxyCODONE/APAP 10/325 TABLET PO PRN ×3 (01:03→16:55)
[2021-03-01] MEDS: Acetaminophen 325 MG TABLET PO PRN ×3 (05:02→21:02)
[2021-03-01] MEDS: *HR* Enoxaparin 40 MG/0.4 ML SYRINGE SQ SCH (05:40)
[2021-03-01 06:31] LABS: Hemoglobin 9.4 g/dL (11.5-15.4); Mean Corpuscular HGB Conc 30.3 g/dL (31.6-35.5); Mean Corpuscular Hemoglobin 28.7 pg (28.0-33.3); Mean Corpuscular Volume 94.8 fL (83.0-100.0); Mean Platelet Volume 10.1 fL (9.4-12.4); Platelet Count 227 K/mcL (140-400); Red Blood Count 3.27 M/mcL (3.82-4.97); Red Cell Distribution Width 14.4 % (11.5-14.5); White Blood Count 6.5 K/mcL (4.3-11.1)
[2021-03-01 07:37] LABS: Calcium 8.8 mg/dL (8.6-10.3); Potassium 3.7 mEq/L (3.5-5.1)
[2021-03-01] MEDS: Aspirin Enteric Coated 81 MG Tablet PO SCH (10:06)
[2021-03-01] MEDS: Fluticasone Propionate Nasal 50 MCG/SPRAY BOTTLE NS SCH ×2 (10:06→21:08)
[2021-03-01] MEDS: CARIPRAZINE 3 MG PO SCH (10:06)
[2021-03-01] MEDS: ALPRAZolam 0.5 MG TABLET PO SCH ×2 (10:06→21:03)
[2021-03-01] MEDS: Renal Vitamin 1 CAP CAPSULE PO SCH (10:06)
[2021-03-01] MEDS: NIFEdipine XL (24 HR) 30 MG TAB.ER.24 PO SCH (10:06)
[2021-03-01] MEDS: Cyanocobalamin (B-12) 1,000 MCG TABLET PO SCH (10:06)
[2021-03-01] MEDS: lamoTRIgine 100 MG TABLET PO SCH ×2 (10:07→21:03)
[2021-03-01] MEDS: Sennosides/Docusate Sodium TABLET PO SCH ×2 (10:07→21:02)
[2021-03-01] MEDS: polyethylene glycoL 3350 17 GM POWD.PACK PO SCH (10:07)
[2021-03-01] MEDS: Ondansetron ODT 4 MG TAB.RAPDIS SL PRN (18:10)
[2021-03-01] MEDS: Melatonin 3 MG TABLET PO PRN (21:02)
[2021-03-02] MEDS: *HR* OxyCODONE/APAP 10/325 TABLET PO PRN ×4 (00:55→22:18)
[2021-03-02] MEDS: Acetaminophen 325 MG TABLET PO PRN ×3 (04:04→22:17)
[2021-03-02] MEDS: *HR* Enoxaparin 40 MG/0.4 ML SYRINGE SQ SCH (05:42)
[2021-03-02] MEDS: Aspirin Enteric Coated 81 MG Tablet PO SCH (08:41)
[2021-03-02] MEDS: Sennosides/Docusate Sodium TABLET PO SCH ×2 (08:41→20:40)
[2021-03-02] MEDS: ALPRAZolam 0.5 MG TABLET PO SCH ×2 (08:41→20:40)
[2021-03-02] MEDS: NIFEdipine XL (24 HR) 30 MG TAB.ER.24 PO SCH (08:42)
[2021-03-02] MEDS: Cyanocobalamin (B-12) 1,000 MCG TABLET PO SCH (08:42)
[2021-03-02] MEDS: lamoTRIgine 100 MG TABLET PO SCH ×2 (08:43→20:40)
[2021-03-02] MEDS: Renal Vitamin 1 CAP CAPSULE PO SCH (08:43)
[2021-03-02] MEDS: polyethylene glycoL 3350 17 GM POWD.PACK PO SCH (08:45)
[2021-03-02] MEDS: CARIPRAZINE 3 MG PO SCH (08:48)
[2021-03-02] MEDS: Fluticasone Propionate Nasal 50 MCG/SPRAY BOTTLE NS SCH ×2 (08:49→20:40)
[2021-03-02] MEDS: Ondansetron ODT 4 MG TAB.RAPDIS SL PRN (17:56)
[2021-03-02] MEDS: Melatonin 3 MG TABLET PO PRN (22:17)
[2021-03-03] MEDS: Acetaminophen 325 MG TABLET PO PRN ×4 (03:44→22:39)
[2021-03-03] MEDS: *HR* OxyCODONE/APAP 10/325 TABLET PO PRN ×3 (04:29→20:25)
[2021-03-03] MEDS: *HR* Enoxaparin 40 MG/0.4 ML SYRINGE SQ SCH (05:58)
[2021-03-03] MEDS: ALPRAZolam 0.5 MG TABLET PO SCH ×2 (09:35→19:52)
[2021-03-03] MEDS: NIFEdipine XL (24 HR) 30 MG TAB.ER.24 PO SCH (09:35)
[2021-03-03] MEDS: Cyanocobalamin (B-12) 1,000 MCG TABLET PO SCH (09:35)
[2021-03-03] MEDS: Sennosides/Docusate Sodium TABLET PO SCH ×2 (09:35→20:00)
[2021-03-03] MEDS: lamoTRIgine 100 MG TABLET PO SCH ×2 (09:35→19:52)
[2021-03-03] MEDS: Renal Vitamin 1 CAP CAPSULE PO SCH (09:35)
[2021-03-03] MEDS: Aspirin Enteric Coated 81 MG Tablet PO SCH (09:35)
[2021-03-03] MEDS: Fluticasone Propionate Nasal 50 MCG/SPRAY BOTTLE NS SCH ×2 (09:36→22:54)
[2021-03-03] MEDS: polyethylene glycoL 3350 17 GM POWD.PACK PO SCH (09:36)
[2021-03-03] MEDS: CARIPRAZINE 3 MG PO SCH (09:41)
[2021-03-03] MEDS: Melatonin 3 MG TABLET PO PRN (22:41)
[2021-03-04] MEDS: *HR* OxyCODONE/APAP 10/325 TABLET PO PRN ×4 (02:52→22:05)
[2021-03-04] MEDS: *HR* Enoxaparin 40 MG/0.4 ML SYRINGE SQ SCH (06:15)
[2021-03-04] MEDS: Aspirin Enteric Coated 81 MG Tablet PO SCH (10:04)
[2021-03-04] MEDS: NIFEdipine XL (24 HR) 30 MG TAB.ER.24 PO SCH (10:04)
[2021-03-04] MEDS: Renal Vitamin 1 CAP CAPSULE PO SCH (10:04)
[2021-03-04] MEDS: Cyanocobalamin (B-12) 1,000 MCG TABLET PO SCH (10:04)
[2021-03-04] MEDS: lamoTRIgine 100 MG TABLET PO SCH ×2 (10:04→19:51)
[2021-03-04] MEDS: Sennosides/Docusate Sodium TABLET PO SCH ×2 (10:04→19:50)
[2021-03-04] MEDS: polyethylene glycoL 3350 17 GM POWD.PACK PO SCH (10:05)
[2021-03-04] MEDS: Fluticasone Propionate Nasal 50 MCG/SPRAY BOTTLE NS SCH ×2 (10:14→19:58)
[2021-03-04] MEDS: CARIPRAZINE 3 MG PO SCH (10:14)
[2021-03-04] MEDS: Acetaminophen 325 MG TABLET PO PRN ×2 (13:52→19:50)
[2021-03-04] MEDS: Melatonin 3 MG TABLET PO PRN (22:05)
[2021-03-04] MEDS: ALPRAZolam 0.5 MG TABLET PO SCH (23:05)
[2021-03-05] MEDS: Acetaminophen 325 MG TABLET PO PRN ×3 (04:29→17:11)
[2021-03-05] MEDS: *HR* Enoxaparin 40 MG/0.4 ML SYRINGE SQ SCH (06:13)
[2021-03-05] MEDS: *HR* OxyCODONE/APAP 10/325 TABLET PO PRN ×3 (06:37→20:25)
[2021-03-05] MEDS: Sennosides/Docusate Sodium TABLET PO SCH ×2 (09:13→20:25)
[2021-03-05] MEDS: ALPRAZolam 0.5 MG TABLET PO SCH ×2 (09:14→22:55)
[2021-03-05] MEDS: Aspirin Enteric Coated 81 MG Tablet PO SCH (09:14)
[2021-03-05] MEDS: Cyanocobalamin (B-12) 1,000 MCG TABLET PO SCH (09:14)
[2021-03-05] MEDS: NIFEdipine XL (24 HR) 30 MG TAB.ER.24 PO SCH (09:14)
[2021-03-05] MEDS: Renal Vitamin 1 CAP CAPSULE PO SCH (09:14)
[2021-03-05] MEDS: lamoTRIgine 100 MG TABLET PO SCH ×2 (09:14→20:25)
[2021-03-05] MEDS: polyethylene glycoL 3350 17 GM POWD.PACK PO SCH (09:15)
[2021-03-05] MEDS: CARIPRAZINE 3 MG PO SCH (09:21)
[2021-03-05] MEDS: Fluticasone Propionate Nasal 50 MCG/SPRAY BOTTLE NS SCH ×2 (09:21→20:29)
[2021-03-05] MEDS: Ondansetron ODT 4 MG TAB.RAPDIS SL PRN (18:36)
[2021-03-05] MEDS: Melatonin 3 MG TABLET PO PRN (20:24)
[2021-03-06] MEDS: *HR* OxyCODONE/APAP 10/325 TABLET PO PRN ×3 (02:57→18:10)
[2021-03-06] MEDS: *HR* Enoxaparin 40 MG/0.4 ML SYRINGE SQ SCH (05:42)
[2021-03-06] MEDS: Acetaminophen 325 MG TABLET PO PRN ×3 (05:50→21:54)
[2021-03-06] MEDS: Sennosides/Docusate Sodium TABLET PO SCH ×2 (08:54→21:53)
[2021-03-06] MEDS: ALPRAZolam 0.5 MG TABLET PO SCH ×2 (08:54→21:53)
[2021-03-06] MEDS: NIFEdipine XL (24 HR) 30 MG TAB.ER.24 PO SCH (08:55)
[2021-03-06] MEDS: CARIPRAZINE 3 MG PO SCH (08:55)
[2021-03-06] MEDS: polyethylene glycoL 3350 17 GM POWD.PACK PO SCH (08:55)
[2021-03-06] MEDS: Aspirin Enteric Coated 81 MG Tablet PO SCH (08:55)
[2021-03-06] MEDS: Fluticasone Propionate Nasal 50 MCG/SPRAY BOTTLE NS SCH ×2 (08:55→21:54)
[2021-03-06] MEDS: lamoTRIgine 100 MG TABLET PO SCH ×2 (08:55→21:53)
[2021-03-06] MEDS: Renal Vitamin 1 CAP CAPSULE PO SCH (08:55)
[2021-03-06] MEDS: Cyanocobalamin (B-12) 1,000 MCG TABLET PO SCH (08:56)
[2021-03-06] MEDS: Melatonin 3 MG TABLET PO PRN (21:53)
[2021-03-07] MEDS: *HR* OxyCODONE/APAP 10/325 TABLET PO PRN ×3 (03:29→17:49)
[2021-03-07] MEDS: *HR* Enoxaparin 40 MG/0.4 ML SYRINGE SQ SCH (06:07)
[2021-03-07] MEDS: Sennosides/Docusate Sodium TABLET PO SCH ×2 (09:59→20:50)
[2021-03-07] MEDS: CARIPRAZINE 3 MG PO SCH ×2 (09:59→10:07)
[2021-03-07] MEDS: NIFEdipine XL (24 HR) 30 MG TAB.ER.24 PO SCH (10:00)
[2021-03-07] MEDS: lamoTRIgine 100 MG TABLET PO SCH ×2 (10:00→20:50)
[2021-03-07] MEDS: Cyanocobalamin (B-12) 1,000 MCG TABLET PO SCH (10:00)
[2021-03-07] MEDS: ALPRAZolam 0.5 MG TABLET PO SCH ×2 (10:00→20:49)
[2021-03-07] MEDS: Renal Vitamin 1 CAP CAPSULE PO SCH (10:00)
[2021-03-07] MEDS: Aspirin Enteric Coated 81 MG Tablet PO SCH (10:00)
[2021-03-07] MEDS: Acetaminophen 325 MG TABLET PO PRN ×3 (10:01→20:50)
[2021-03-07] MEDS: Fluticasone Propionate Nasal 50 MCG/SPRAY BOTTLE NS SCH ×3 (10:01→20:56)
[2021-03-07] MEDS: polyethylene glycoL 3350 17 GM POWD.PACK PO SCH (10:04)
[2021-03-07] MEDS: Melatonin 3 MG TABLET PO PRN (20:49)
[2021-03-08] MEDS: *HR* OxyCODONE/APAP 10/325 TABLET PO PRN ×2 (01:53→09:05)
[2021-03-08 05:43] LABS: Basophils % 0.2 %; Eosinophils # 0.2 K/mcL (0.0-0.6); Eosinophils % 3.1 %; Hematocrit 31.6 % (35.3-44.9); Hemoglobin 9.7 g/dL (11.5-15.4); Immature Granulocytes % 0.2 % (0-4); Lymphocytes # 2.3 K/mcL (0.6-4.6); Lymphocytes % 35.6 %; Mean Corpuscular HGB Conc 30.7 g/dL (31.6-35.5); Mean Corpuscular Hemoglobin 28.5 pg (28.0-33.3); Mean Corpuscular Volume 92.9 fL (83.0-100.0); Mean Platelet Volume 9.8 fL (9.4-12.4); Monocytes # 0.5 K/mcL (0.0-1.3); Monocytes % 8.2 %; Neutrophils # 3.4 K/mcL (1.6-8.9); Platelet Count 207 K/mcL (140-400); Red Cell Distribution Width 14.4 % (11.5-14.5); Segmented Neutrophils % 52.7 %; White Blood Count 6.4 K/mcL (4.3-11.1)
[2021-03-08 06:05] LABS: BUN/Creatinine Ratio 11 (6-26); Blood Urea Nitrogen 10 mg/dL (8-23); Calcium 8.8 mg/dL (8.6-10.3); Carbon Dioxide 27 mEq/L (23-29); Chloride 103 mEq/L (98-107); Glucose 128 mg/dL (70-105); Osmolality,Calculated 289 (280-300); Potassium 3.7 mEq/L (3.5-5.1); Sodium 139 mEq/L (136-145); eGFR For African Americans > 60 (> 60); eGFR For Non-African Americans > 60 (> 60)
[2021-03-08] MEDS: Acetaminophen 325 MG TABLET PO PRN ×2 (06:31→17:32)
[2021-03-08 06:53] VITALS: BP 153/86
[2021-03-08] MEDS: CARIPRAZINE 3 MG PO SCH (09:04)
[2021-03-08] MEDS: Cyanocobalamin (B-12) 1,000 MCG TABLET PO SCH (09:04)
[2021-03-08] MEDS: Sennosides/Docusate Sodium TABLET PO SCH (09:04)
[2021-03-08] MEDS: Aspirin Enteric Coated 81 MG Tablet PO SCH (09:04)
[2021-03-08] MEDS: Fluticasone Propionate Nasal 50 MCG/SPRAY BOTTLE NS SCH (09:04)
[2021-03-08] MEDS: Renal Vitamin 1 CAP CAPSULE PO SCH (09:05)
[2021-03-08] MEDS: ALPRAZolam 0.5 MG TABLET PO SCH (09:05)
[2021-03-08] MEDS: NIFEdipine XL (24 HR) 30 MG TAB.ER.24 PO SCH (09:05)
[2021-03-08] MEDS: lamoTRIgine 100 MG TABLET PO SCH (09:05)
[2021-03-08] MEDS: polyethylene glycoL 3350 17 GM POWD.PACK PO SCH (09:06)
[2021-03-08] MEDS ORDERED: ALPRAZolam 0.5 MG TABLET PO ONE (14:27)
== END 2021-03-08 18:04 | disposition home health service (06) | DRG 945 ==
LOC: INPPIK 20:42
PROVIDERS: ADMIT Family Medicine; ATTEND Family Medicine